=== PATIENT | male | born 1980 | race Hispanic/Latino ===

== ENCOUNTER 2017-05-14 11:54 | Emergency (ER) | payer SELFPAY ==
[~2017-05-14 11:54] MED LIST: ALBU18HF7 IH
[2017-05-14] MEDS ORDERED: IPRATROPIUM/ALBUTEROL SULFATE 3 ML SOLUTION IH ONE ×2 (12:04→14:26)
[2017-05-14] MEDS ORDERED: PREDNISONE 20 MG TABLET ONE (12:38)
== END 2017-05-14 15:18 | disposition home or self-care (01) ==
LOC: EDH 11:54
DX: J45.901 Unspecified asthma with (acute) exacerbation (principal)
CPT/HCPCS: 94640